=== PATIENT | female | born 1980 | race Caucasian/White ===

== ENCOUNTER → 2020-10-23 | Outpatient (CLI) | payer MEDICAID ==
[~2020-10-23] MED LIST: AMOXICILLIN 8751 TAB PO
== END ==
LOC: ZCOL.LAB 17:23
DX: B34.9 Viral infection, unspecified (principal); Z20.828 Contact with and (suspected) exposure to other viral communicable diseases

== ENCOUNTER → 2021-11-10 | Outpatient (CLI) | payer MEDICAID | LOC: COL.RAD 08:52 | DX: D25.9 Leiomyoma of uterus, unspecified (principal); N92.1 Excessive and frequent menstruation with irregular cycle ==